=== PATIENT | male | born 1980 | race Caucasian/White ===

== ENCOUNTER 2022-01-15 12:01 | Emergency (ER) | payer SELFPAY ==
[~2022-01-15] VITALS: Ht 175.3 cm; Wt 87.1 kg
[2022-01-15 12:22] VITALS: BP 139/71
--- NOTE | 2022-01-15 12:24 | NUR ---
Patient being evaluated by SAMUEL CAMPBELL at bedside.
--- NOTE | 2022-01-15 13:01 | NUR ---
PATIENT AMBULATED TO BED 12.
[2022-01-15] MEDS ORDERED: ATA10 PO (13:28)
== END 2022-01-15 13:43 | disposition home or self-care (01) ==
LOC: MED 12:01
DX: H02.842 Edema of right lower eyelid (principal)
CPT/HCPCS: 99283